=== PATIENT | female | born 1975 | race Caucasian/White ===

== ENCOUNTER 2023-12-24 08:32 | Emergency (ER) | payer OTHER ==
[~2023-12-24] VITALS: Ht 154.9 cm; Wt 50.5 kg
[2023-12-24 08:34] VITALS: BP 140/81; TEMP 97.9; O2SAT 97
[2023-12-24] MEDS ORDERED: INSU100I59 SQ (08:43)
[2023-12-24] MEDS ORDERED: FLUO-290 PO (08:43)
[2023-12-24] MEDS ORDERED: ACET-683 PO (08:43)
[2023-12-24] MEDS ORDERED: LEVO88TA3 PO (08:43)
[2023-12-24] MEDS ORDERED: GABA-1171 PO (08:43)
[2023-12-24] MEDS ORDERED: HUMA100I3 SC (08:43)
[2023-12-24 10:16] LABS: RSV AMPLIFICATION NEGATIVE (NEGATIVE)
== END 2023-12-24 10:22 | disposition home or self-care (01) ==
LOC: M ED 08:32
DX: J02.9 Acute pharyngitis, unspecified (principal); E11.9 Type 2 diabetes mellitus without complications; E03.9 Hypothyroidism, unspecified; F41.9 Anxiety disorder, unspecified; F32.A Depression, unspecified; F17.210 Nicotine dependence, cigarettes, uncomplicated; Z79.1 Long term (current) use of non-steroidal anti-inflammatories (NSAID); Z79.4 Long term (current) use of insulin; Z79.899 Other long term (current) drug therapy

== ENCOUNTER 2024-04-13 18:45 | Emergency (ER) | payer OTHER ==
[~2024-04-13] VITALS: Ht 152.4 cm; Wt 51.0 kg
[~2024-04-13 18:45] MED LIST: ACET-683 PO; FLUO-290 PO; GABA-1171 PO; HUMA100I3 SC; INSU100I59 SQ; LEVO88TA3 PO
[2024-04-13 18:47] VITALS: BP 123/71; TEMP 96.4; O2SAT 99
[2024-04-13] MEDS: AUGMENTIN 875 MG TAB PO ONE (20:40)
[2024-04-13] MEDS ORDERED: AMOX875T2 PO (20:41)
== END 2024-04-13 20:55 | disposition home or self-care (01) ==
LOC: M ED 18:45
DX: J02.0 Streptococcal pharyngitis (principal); E10.9 Type 1 diabetes mellitus without complications; Z79.1 Long term (current) use of non-steroidal anti-inflammatories (NSAID); Z79.2 Long term (current) use of antibiotics; Z79.4 Long term (current) use of insulin; Z79.899 Other long term (current) drug therapy

== ENCOUNTER 2024-06-19 12:11 | Emergency (ER) | payer OTHER ==
[~2024-06-19] VITALS: Ht 152.4 cm; Wt 50.6 kg
[~2024-06-19 12:11] MED LIST changes: +AMOX875T2 PO
[2024-06-19] MEDS ORDERED: CEPH500C PO (13:05)
[2024-06-19 13:19] VITALS: BP 127/72; TEMP 97.8; O2SAT 98
== END 2024-06-19 13:20 | disposition home or self-care (01) ==
LOC: M ED 12:11
DX: J02.9 Acute pharyngitis, unspecified (principal); E11.9 Type 2 diabetes mellitus without complications; Z87.891 Personal history of nicotine dependence; Z79.1 Long term (current) use of non-steroidal anti-inflammatories (NSAID); Z79.2 Long term (current) use of antibiotics; Z79.4 Long term (current) use of insulin; Z79.899 Other long term (current) drug therapy

== ENCOUNTER 2024-07-19 16:10 | Emergency (ER) | payer OTHER ==
[~2024-07-19] VITALS: Ht 154.9 cm; Wt 51.3 kg
[~2024-07-19 16:10] MED LIST changes: +CEPH500C PO
[2024-07-19] MEDS: NS (Normal Saline) 0.9% 1,000 ML IV ONE (16:30)
[2024-07-19] MEDS: HumuLIN R (REGULAR) INSULIN (NovoLIN R) **100U/ML** PER UNIT IV ONE (16:49)
[2024-07-19 16:57] LABS: VENOUS BASE EXCESS 0.8 (-2.0-2.0); VENOUS HCO3 26.7 MMOL/L (23.0-27.0); VENOUS O2 SATURATION 68.8 % (60.0-80.0); VENOUS PARTIAL PRESSURE CO2 48.2 mmHg (38.0-50.0); VENOUS PARTIAL PRESSURE O2 35.9 mmHg (30.0-50.0); VENOUS PH 7.362 UNITS (7.330-7.430); VENOUS STANDARD HCO3 24.6 MMOL/L; VENOUS TOTAL CO2 28.2 MMOL/L (24.0-28.0)
[2024-07-19 17:08] LABS: BASO # 0.1 10^3/uL (0.0-0.2); BASO % 0.6 % (0.0-1.0); EOS # 0.2 10^3/uL (0.0-0.5); EOS % 1.1 % (0.0-3.0); HEMATOCRIT 36.1 % (36.0-47.0); HEMOGLOBIN 11.5 g/dl (12.0-15.5); LYMPH # 1.5 10^3/uL (1.5-5.0); LYMPH % 10.9 % (24.0-44.0); MEAN CORPUSCULAR HEMOGLOBIN 28.3 pg (27.0-33.0); MEAN CORPUSCULAR HGB CONC 31.9 g/dl (32.0-36.5); MEAN CORPUSCULAR VOLUME 88.7 fl (80.0-96.0); MONO # 0.6 10^3/uL (0.0-0.8); MONO % 4.3 % (2.0-8.0); NEUTROPHILS # 11.2 10^3/uL (1.5-8.5); NEUTROPHILS % 82.4 % (36.0-66.0); PLATELET COUNT, AUTOMATED 397 10^3/uL (150-450); RED BLOOD COUNT 4.07 10^6/uL (4.00-5.40); WHITE BLOOD COUNT 13.6 10^3/uL (4.0-10.0)
[2024-07-19 17:21] LABS: KETONE, URINE AUTO RFX 1+ mg/dL (NEGATIVE); LEUKOCYTE ESTERASE UR AUTO RFX NEGATIVE (NEGATIVE); MUCUS, URINE RFX SMALL (NEGATIVE); NITRITE, URINE AUTO RFX NEGATIVE (NEGATIVE); RBC, URINE AUTO RFX 1 /HPF (0-3); SQUAM EPITHELIAL CELL UR AURFX 2 /HPF (0-6); WBC, URINE AUTO RFX 2 /HPF (0-3)
[2024-07-19 17:23] LABS: HEMOGLOBIN A1c 10.7 % (4.0-6.0)
[2024-07-19 18:46] LABS: ETHYL ALCOHOL (ETHANOL) < 0.003 % (0.000-0.010); LIPASE 17 U/L (12-53)
[2024-07-19 18:50] LABS: ACETONE/KETONE 0.27 MMOL/L (0.02-0.27)
[2024-07-19 18:51] LABS: ALBUMIN 2.9 G/DL (3.2-5.2); ALKALINE PHOSPHATASE 132 U/L (35-104); ALT/SGPT 20 U/L (7.0-40); AST/SGOT 16 U/L (<34); BILIRUBIN,DIRECT < 0.1 MG/DL (<0.4); BILIRUBIN,TOTAL 0.3 MG/DL (0.3-1.2); BLOOD UREA NITROGEN 14 MG/DL (9-23); CALCIUM LEVEL 7.6 MG/DL (8.5-10.1); CARBON DIOXIDE LEVEL 27 MMOL/L (20-31); CHLORIDE LEVEL 104 MMOL/L (98-107); GLOMERULAR FILTRATION RATE > 90.0 (>58); GLUCOSE, FASTING 188 MG/DL (60-100); POTASSIUM SERUM 3.7 MMOL/L (3.5-5.1); SODIUM LEVEL 139 MMOL/L (136-145); TOTAL PROTEIN 6.1 G/DL (5.7-8.2)
[2024-07-19 18:53] LABS: OSMOLALITY SERUM 295 MOSM/KG (275-295)
[2024-07-19 19:18] VITALS: BP 138/78; TEMP 98; O2SAT 97
== END 2024-07-19 19:19 | disposition home or self-care (01) ==
LOC: EDBD 16:10 → M ED 16:10
DX: E11.65 Type 2 diabetes mellitus with hyperglycemia (principal); Z79.1 Long term (current) use of non-steroidal anti-inflammatories (NSAID); Z79.2 Long term (current) use of antibiotics; Z79.4 Long term (current) use of insulin; Z79.899 Other long term (current) drug therapy
CPT/HCPCS: 80048; 80076; 81001; 82010; 82077; 82803; 83036; 83690; 83930; 85025; 93005; 93041; 94760; 96374; 99285; J1815